=== PATIENT | female | born 1975 | race Caucasian/White ===

== ENCOUNTER 2019-06-30 13:58 | Inpatient (IN) | payer BC, OTHER ==
[2019-06-30 14:27] LABS: ABS Lymphocytes 1.5 10^3/ul (1.0-4.8); ABS Monocytes 0.3 10^3/ul (0-0.8); ABS Neutrophils 2.5 10^3/ul (1.5-7.7); Eosinophil % 0.4 %; Hematocrit 34 % (35-47); Hemoglobin 11.4 g/dL (12.0-16.0); Lymphocyte % 34.5 %; Mean Corpuscular HGB Conc 34 g/dL (31-36); Mean Corpuscular Hemoglobin 28 pg (27-31); Mean Corpuscular Volume 83 fL (80-97); Mean Platelet Volume 7.9 fL (7.4-10.4); Nucleated Red Blood Cells % 0.2; Platelet Count 190 10^3/uL (150-450); Red Blood Count 4.05 10^6 /uL (3.70-4.87); Red Cell Distribution Width 15 % (10-15); White Blood Count 4.4 10^3/uL (3.5-10.8)
--- OUTSIDE RECORDS SUMMARY | 2019-06-30 14:28 | XMS REPORT | Summary of Care ---
:1975 Author Organization [facility] Address [address] [facility] [place] [address] Care Team Providers Name Role Phone KaelJeovanyshona Ortiz Primary Care Provider Reason for Visit Reason Comments Chest Pain Pt has been been having chest discomfort for 2 weeks, tried heartburn medication and it didn't do anything, tightness feeling that is constant, but exertion makes it worse. Encounter Details Date Type Department Care Team Description 06/30/2019 Office Visit [facility] Patrick Timmons, Chest pain, Medicine PA unspecified type [address] (Primary Dx) [place] [address] [place] [address] [phone] Allergies No Known Allergiesdocumented as of this encounter (statuses as of 06/30/2019) Medications Medication Sig Dispensed Refills Start Date End Date Status cetirizine (ZYRTEC) 10 Take 10 mg by 0 Active MG Oral Tab mouth NEEDED ibuprofen (ADVIL) 200 MG Take 200 mg by 0 Active Oral Tab mouth EVERY SIX HOURS NEEDED for Pain. butalbital-acetaminophen Take 1 Tab by 60 Tab 2 01/10/2018 Active -caffeine (FIORICET) mouth EVERY 50-325-40 MG Oral TWELVE HOURS TabIndications: Chronic NEEDED nonintractable headache, (Headache). unspecified headache type documented as of this encounter (statuses as of 06/30/2019) Active Problems Problem Noted Date HTN (hypertension) Overview: Replaced inactive diagnosis Depression with anxiety Headache documented as of this encounter (statuses as of 06/30/2019) Immunizations Name Administration Dates Next Due Influenza (IM) Preservative Free 02/14/2011 documented as of this encounter Social History Tobacco Use Types Packs/Day Years Used Date Never Smoker Smokeless Tobacco: Never Used Alcohol Use Drinks/Week oz/Week Comments Yes 5 Standard drinks or equivalent 5.0 Sex Assigned at Date Recorded Not on file documented as of this encounter Last Filed Vital Signs Vital Sign Reading Time Taken Comments Blood Pressure 120/60 06/30/2019 1:06 PM EST Pulse 82 06/30/2019 1:06 PM EST Temperature 36.5 06/30/2019 1:06 PM EST C (97.7 F) Respiratory Rate - - Oxygen Saturation 98% 06/30/2019 1:06 PM EST Inhaled Oxygen Concentration - - Weight 62.1 kg (137 lb) 06/30/2019 1:06 PM EST Height 157.5 cm (5' 2") 06/30/2019 1:06 PM EST Body Mass Index 25.06 06/30/2019 1:06 PM EST documented in this encounter Patient Instructions Patient InstructionsPatrick Timmons PA - 06/30/2019 1:00 PM ESTPlease [facility] the [facility] Please follow up after the visit, I would like to know how you are doing. documented in this encounter Progress Notes Patrick Timmons PA - 06/30/2019 1:00 PM EST PATIENT: Nilson Erickson : 1975 DATE OF SERVICE: 06/30/2019 Subjective SUBJECTIVE: Nilson Erickson is a 43-y.o. female with chest pain. Onset was 2 weeks ago, with worsening course since that time. The patient admits to chest discomfort that is constant. Radiation to: none Rated as a scale of mild in intensity that is pressure in nature. Associated symptoms are exertional chest pressure/discomfort, dyspnea on exertion. Aggravating factors are: exercise. Alleviating factors are: nothing specific. Patient's cardiac risk factors are: family history of heart problems , hypertension. Patient's risk factors for deep vein thrombosis/pulmonary embolism: None. Previous cardiac testing includes: electrocardiogram (EKG). Patient Active Problem List Diagnosis Date Noted ? HTN (hypertension) Replaced inactive diagnosis ? Depression with anxiety ? Headache Past Medical History: Diagnosis Date ? Depression with anxiety ? H/O multiple allergies ? Headache(784.0) ? HTN Past Surgical History: Procedure Laterality Date ? COLONOSCOPY DIAGNOSTIC Prior to Admission medications Medication Sig gmtwnkfmtb-aizxknsrrwgau-teazgrtw (FIORICET) 50-325-40 MG Oral Tab Take 1 Tab by mouth EVERY TWELVE HOURS NEEDED (Headache). cetirizine (ZYRTEC) 10 MG Oral Tab Take 10 mg by mouth NEEDED ibuprofen (ADVIL) 200 MG Oral Tab Take 200 mg by mouth EVERY SIX HOURS NEEDED for Pain. No Known Allergies Social History Tobacco Use ? Smoking status: Never Smoker ? Smokeless tobacco: Never Used Substance Use Topics ? Alcohol use: Yes Alcohol/week: 5.0 standard drinks Types: 5 Standard drinks or equivalent per week Family History Problem Relation Age of Onset ? Hypertension Mother ? GI Mother ? Cancer Mother esophageal ? Hypertension Maternal Aunt ? Cancer Maternal Aunt ? Hypertension Maternal Uncle ? Diabetes Maternal Grandfather ? Heart Failure Paternal Grandmother ? Hypertension Maternal Aunt ? Cancer Maternal Aunt ? Hypertension Maternal Aunt ? Hypertension Maternal Uncle ? Hypertension Maternal Uncle ? Prostate Cancer Father REVIEW OF SYSTEMS: Review of Systems Constitutional: Negative for chills, diaphoresis, fever and weight loss. HENT: Negative for tinnitus. Eyes: Negative for blurred vision and double vision. Respiratory: Positive for shortness of breath. Negative for cough and wheezing. Cardiovascular: Positive for chest pain. Negative for palpitations, orthopnea and leg swelling. Gastrointestinal: Negative for diarrhea, heartburn, nausea and vomiting. Genitourinary: Negative for flank pain and hematuria. Musculoskeletal: Negative for joint pain and myalgias. Skin: Negative for itching and rash. Neurological: Negative for dizziness, speech change, seizures, loss of consciousness and headaches. Psychiatric/Behavioral: Negative for substance abuse. The patient is not nervous /anxious and does not have insomnia. Objective OBJECTIVE: BP 120/60 (BP Location: Left arm, Patient Position: Sitting) | Pulse 82 | Temp 97.7 F (36.5 C) (Tympanic) | Ht 5' 2" (1.575 m) | Wt 137 lb ( 62.1 kg) | SpO2 98% | BMI 25.06 kg/m GENERAL: alert, cooperative, no distress. NECK: nontender. LUNG: clear to auscultation bilaterally. HEART: regular rate and rhythm, S1, S2 normal, no murmur, click, rub or gallop ABDOMEN: soft, non-tender. Bowel sounds normal. No masses, no organomegaly. EXTREMITIES: extremities normal, atraumatic, no cyanosis or edema. SKIN: Warm and dry. No hyperpigmentation, vitiligo, or suspicious lesions. ELECTROCARDIOGRAM: Normal sinus rhythm with nonspecific T wave abnormality. Changes noted in comparison to last EKG. See scans. ASSESSMENT: Chest pain, suspected etiology: Possible cardiac. ICD-9-CM ICD-10-CM 1. Chest pain, unspecified type 786.50 R07.9 AMBULATORY 12 LEAD EKG (GLOBAL) Plan PLAN: 1. Transferring patient to the emergency room. Patient refuses ambulance, advised of the risks of not taking ambulance including . Report of transfer provided to charge nurse Catherine at [facility]. 2. Follow up with us as soon as you are discharge from [facility]. Author: CK Polanco 06/30/2019 13:39 documented in this encounter Plan of Treatment Name Type Priority Associated Diagnoses Order Schedule AMBULATORY 12 LEAD EKG EKG Routine Chest pain, unspecified Ordered: 2019 (GLOBAL) type Health Maintenance Due Date Last Done Comments DTaP/Tdap/Td Vaccines (1 - 1985 Tdap) DIABETES SCREENING 1992 LIPID DISORDER SCREENING 05/19/2010 05/19/2009 PAP SMEAR 02/14/2014 02/14/2011, 10/06/2010 (Previously completed) INFLUENZA VACCINE (#1) 2019 02/14/2011 Postponed from 12/29/2018 (Other) DEPRESSION SCREENING 05/22/2020 05/22/2019 MAMMOGRAM (SCREENING) 06/12/2020 06/12/2019, 06/13/2017, 09/22/2015 HEPATITIS A IMMUNIZATION Aged Out No longer eligible based SERIES on patient's age to complete this topic HPV IMMUNIZATION SERIES Aged Out No longer eligible based on patient's age to complete this topic MENINGOCOCCAL VACCINE IMM Aged Out No longer eligible based on patient's age to complete this topic PNEUMOCOCCAL 0-64 YRS Aged Out No longer eligible based on patient's age to complete this topic documented as of this encounter Goals Goal Patient Goal Associated Recent Patient-Stated? Author Type Problems Progress Blood Pressure Blood Pressure 120/60 No Ethan, < 140/90 (06/30/2019 MELY Roberts 1:06 PM EST) Note: This is an individualized treatment (blood pressure) goal for Nilson Erickson: Displayed above (on the left) is your goal for blood pressure control. Your most recent blood pressure is also shown above, on the right. You should try to achieve blood pressures that are lower than your goal listed above (on the left). Depression screen (PHQ-9) total score < 5 Depression No Patrick Timmons PA Note: This is an individualized treatment (depression) goal for Nilson Erickson: Displayed above is your goal for a depression screening (PHQ-9) score that would indicate good control of your depression. Keep a regular sleep schedule Lifestyle No Patrick Timmons PA Note: This is an individualized lifestyle goal for Nilson Erickson: Please maintain a regular sleep schedule. This may help with some symptoms of depression. Take all prescribed medications as Self-management No Alejandra Long FNP directed Note: This is an individualized self-management goal for Nilson Erickson: Please take all prescribed medications as directed. 1. Do not skip doses. If you cannot afford your medications, talk with your doctor. 2. Use a pill reminder system such as a pill box if needed. Your pharmacist can help you with this. 3. Contact your Pharmacy 5 days before your medication runs out. If you cannot take your medications for any reasons, talk with your doctor. 4. Please bring all of your medication bottles and inhalers (or a list of all your medications/inhalers) with you to every visit. Potential barriers to meeting all of your care plan goals will continue to be addressed on an ongoing basis. documented as of this encounter Results Not on filedocumented in this encounter Visit Diagnoses Diagnosis Chest pain, unspecified type documented in this encounter Guarantor Name Account Type Relation to Date of Phone Billing Patient Address Nilson Erickson Personal/Family 1975 [address]) [address] [phone] [place], [place] (Work) [id number] documented as of this encounter
--- OUTSIDE RECORDS SUMMARY | 2019-06-30 14:28 | XMS REPORT | Summary of Care ---
:1975 Author Organization [facility] Address [address] [facility] [place] [address] Care Team Providers Name Role Phone [place] Angel Primary Care Provider Reason for Visit Reason Comments Nasal Congestion x2 weeks Sore Throat Cough Encounter Details Date Type Department Care Team Description 05/22/2019 Office Visit Zuly Tavarez, Acute sinusitis, Practice [employer] recurrence not [address] specified, [place] [address] [place] [address] location (Primary Dx) [phone] Allergies No Known Allergiesdocumented as of this encounter (statuses as of 05/22/2019) Medications Medication Sig Dispensed Refills Start Date End Date Status cetirizine (ZYRTEC) Take 10 mg by 0 Active 10 MG Oral Tab mouth NEEDED ibuprofen (ADVIL) Take 200 mg 0 Active 200 MG Oral Tab by mouth EVERY SIX HOURS NEEDED for Pain. butalbital-acetamin Take 1 Tab by 60 Tab 2 01/10/2018 Active ophen-caffeine mouth EVERY (FIORICET) TWELVE HOURS 50-325-40 MG Oral NEEDED TabIndications: (Headache). Chronic nonintractable headache, unspecified headache type amoxicillin-clavula Take 1 Tab by 20 Tab 0 05/22/2019 Active teddy acid mouth TWICE 0 (AUGMENTIN) 500-125 DAILY for 10 MG Oral days. TabIndications: Acute sinusitis, recurrence not specified, unspecified location Benzonatate 200 MG Take 1 Cap by 40 Cap 1 04/20/2017 Discontinued Oral mouth THREE 0 (Therapy CapIndications: TIMES DAILY Completed) Acute bronchitis, NEEDED unspecified (cough). organism diclofenac 2 g by 1 Tube 2 01/10/2018 Discontinued (VOLTAREN) 1 % Topical route 0 (Therapy Transdermal FOUR TIMES Completed) GelIndications: DAILY. Apply Pain of finger of to affected left hand, Elbow elbow and tendonitis finger up to four times a day documented as of this encounter (statuses as of 05/22/2019) Active Problems Problem Noted Date HTN (hypertension) Overview: Replaced inactive diagnosis Depression with anxiety Headache documented as of this encounter (statuses as of 05/22/2019) Immunizations Name Administration Dates Next Due Influenza (IM) Preservative Free 02/14/2011 documented as of this encounter Social History Tobacco Use Types Packs/Day Years Used Date Never Smoker Smokeless Tobacco: Never Used Alcohol Use Drinks/Week oz/Week Comments Yes 5 Standard drinks or equivalent 5.0 Sex Assigned at Date Recorded Not on file Job Start Date Occupation Industry Not on file Not on file Not on file Travel History Travel Start Travel End No recent travel history available. documented as of this encounter Last Filed Vital Signs Vital Sign Reading Time Taken Comments Blood Pressure 126/64 05/22/2019 1:15 PM EST Pulse 89 05/22/2019 1:15 PM EST Temperature 37.3 05/22/2019 1:15 PM EST C (99.2 F) Respiratory Rate - - Oxygen Saturation 98% 05/22/2019 1:15 PM EST Inhaled Oxygen Concentration - - Weight 62.6 kg (138 lb) 05/22/2019 1:15 PM EST Height - - Body Mass Index 25.24 01/10/2018 9:20 AM EDT documented in this encounter Patient Instructions Patient InstructionsZuly Montoya FNP - 05/22/2019 1:00 PM ESTRest Fluids Steam may help loosen congestion Mucinex thins mucus Antibiotic as directed salt water gargle as needed for sore/scratchy throat Call if symptoms fail to resolve or worsen documented in this encounter Progress Notes Zuly Montoya FNP - 05/22/2019 1:00 PM EST PATIENT: Nilson Erickson : 1975 DATE OF SERVICE: 05/22/2019 CHIEF COMPLAINT: Chief Complaint Patient presents with Nasal Congestion x2 weeks Sore Throat Cough Subjective HISTORY OF PRESENT ILLNESS: Nilson Erickson is a 43-y.o. female. HPI URI sx x 2 weeks - son recently with URI and OM. Drinking tea, used Theraflu and OTC Sudafed - sx worse - Hx sinusitis Past Medical History: Diagnosis Date Depression with anxiety H/O multiple allergies Headache(784.0) HTN Family History Problem Relation Age of Onset Hypertension Mother GI Mother Cancer Mother esophageal Hypertension Maternal Aunt Cancer Maternal Aunt Hypertension Maternal Uncle Diabetes Maternal Grandfather Heart Failure Paternal Grandmother Hypertension Maternal Aunt Cancer Maternal Aunt Hypertension Maternal Aunt Hypertension Maternal Uncle Hypertension Maternal Uncle Prostate Cancer Father Current Outpatient Medications Medication Sig amoxicillin-clavulanic acid (AUGMENTIN) 500-125 MG Oral Tab Take 1 Tab by mouth TWICE DAILY for 10 days. liknwjanrb-sgspwtxupvdzo-onkeebti (FIORICET) 50-325-40 MG Oral Tab Take 1 Tab by mouth EVERY TWELVE HOURS NEEDED (Headache). cetirizine (ZYRTEC) 10 MG Oral Tab Take 10 mg by mouth NEEDED ibuprofen (ADVIL) 200 MG Oral Tab Take 200 mg by mouth EVERY SIX HOURS NEEDED for Pain. No current facility-administered medications for this visit. No Known Allergies Social History Socioeconomic History Marital status: Single Spouse name: Not on file Number of children: Not on file Years of education: Not on file Highest education level: Not on file Occupational History Not on file Social Needs Financial resource strain: Not on file Food insecurity Worry: Not on file Inability: Not on file Transportation needs Medical: Not on file Non-medical: Not on file Tobacco Use Smoking status: Never Smoker Smokeless tobacco: Never Used Substance and Sexual Activity Alcohol use: Yes Alcohol/week: 5.0 standard drinks Types: 5 Standard drinks or equivalent per week Drug use: No Sexual activity: Yes Partners: Male control/protection: Vaginal Contraceptive Ring Lifestyle Physical activity Days per week: Not on file Minutes per session: Not on file Stress: Not on file Relationships Social connections Talks on phone: Not on file Gets together: Not on file Attends lutheran service: Not on file Active member of club or organization: Not on file Attends meetings of clubs or organizations: Not on file Relationship status: Not on file Intimate partner violence Fear of current or ex partner: Not on file Emotionally abused: Not on file Physically abused: Not on file Forced sexual activity: Not on file Other Topics Concern Not on file Social History Narrative Lives in [place] with 2 children. 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 Cat in home. No tobacco exposure. Over the last 2 weeks, have you been feeling down, depressed, anxious, or hopeless?: 0 Over the past 2 weeks, have you felt little interest or pleasure in doing things ?: 0 REVIEW OF SYSTEMS: Review of Systems Constitutional: Positive for malaise/fatigue. Negative for chills and fever. HENT: Positive for congestion, ear pain, sinus pain and sore throat. Respiratory: Positive for cough and sputum production. Negative for shortness of breath and wheezing. Musculoskeletal: Positive for myalgias. Neurological: Positive for headaches. Objective PHYSICAL EXAM: VITALS: BP 126/64 | Pulse 89 | Temp 99.2 F (37.3 C) (Tympanic) | Wt 138 lb (62.6 kg) | SpO2 98% | BMI 25.24 kg/m Body mass index is 25.24 kg/ m. Physical Exam Vitals signs and nursing note reviewed. Constitutional: General: She is not in acute distress. Appearance: She is obese. HENT: Head: Normocephalic. Right Ear: Tympanic membrane is retracted. Tympanic membrane is not erythematous. Left Ear: Tympanic membrane is retracted. Tympanic membrane is not erythematous. Nose: Mucosal edema, congestion and rhinorrhea present. Right Sinus: Maxillary sinus tenderness and frontal sinus tenderness present. Left Sinus: Maxillary sinus tenderness and frontal sinus tenderness present. Mouth/Throat: Lips: [place]. Mouth: Mucous membranes are moist. Pharynx: Oropharynx is clear. Uvula midline. No oropharyngeal exudate or posterior oropharyngeal erythema. Neck: Musculoskeletal: Normal range of motion. No neck rigidity. Cardiovascular: Rate and Rhythm: Normal rate and regular rhythm. Pulmonary: Effort: Pulmonary effort is normal. Breath sounds: Normal breath sounds. Lymphadenopathy: Cervical: No cervical adenopathy. Skin: General: Skin is warm and dry. Capillary Refill: Capillary refill takes less than 2 seconds. Coloration: Skin is not ashen, cyanotic or pale. Neurological: Mental Status: She is alert and oriented to person, place, and time. Psychiatric: Mood and Affect: Mood normal. Behavior: Behavior normal. Behavior is cooperative. ASSESSMENT / IMPRESSION: ICD-9-CM ICD-10-CM 1. Acute sinusitis, recurrence not specified, unspecified location 461.9 J01.90 amoxicillin-clavulanic acid (AUGMENTIN) 500-125 MG Oral Tab Plan Rest Fluids Steam may help loosen congestion Mucinex thins mucus Antibiotic as directed salt water gargle as needed for sore/scratchy throat Call if symptoms fail to resolve or worsen Author: MELY Zapien 05/22/2019 13:34 documented in this encounter Plan of Treatment Date Type Specialty Care Team Description 06/12/2019 Ancillary Procedure Radiology Health Maintenance Due Date Last Done Comments DTaP/Tdap/Td Vaccines ( - 1985 Tdap) DIABETES SCREENING 1992 LIPID DISORDER SCREENING 05/19/2010 05/19/2009 PAP SMEAR 02/14/2014 02/14/2011, 10/06/2010 (Previously completed) MAMMOGRAM (SCREENING) 06/13/2018 06/13/2017, 09/22/2015 INFLUENZA VACCINE (#1) 2018 02/14/2011 DEPRESSION SCREENING 05/22/2020 05/22/2019 HEPATITIS A IMMUNIZATION Aged Out No longer [...] Type Problems Progress Blood Pressure Blood Pressure 126/64 No Ethan, < 140/90 (05/22/2019 MELY Roberts 1:15 PM EST) Note: This is an individualized treatment (blood pressure) goal for Nilson Erickson: Displayed above (on the left) is your goal for blood pressure control. Your most recent blood pressure is also shown above, on the right. You should try to achieve blood pressures that are lower than your goal listed above (on the left). Take all prescribed medications as Self-management No [...] filedocumented in this encounter Visit Diagnoses Diagnosis Acute sinusitis, recurrence not specified, unspecified location documented in this encounter"
[2019-06-30 14:37] LABS: INR 0.93 (0.82-1.09)
[2019-06-30 14:44] LABS: Albumin 4.6 g/dL (3.2-5.2); Albumin/Globulin Ratio 1.5 (1-3); BUN/Creatinine Ratio 15.5 (8-20); Calcium 10.1 mg/dL (8.6-10.3); EGFR African American 108.2 (>60); EGFR Non-African American 89.4 (>60); Globulin 3.1 g/dL (2-4); Potassium 3.5 mmol/L (3.5-5.0); Total Bilirubin 0.4 mg/dL (0.2-1.0); Total Protein 7.7 g/dL (6.4-8.9)
[2019-06-30 14:45] LABS: Troponin I 0.01 ng/mL (<0.03)
--- NOTE | 2019-06-30 15:33 | ED ---
HPI Chest Pain - HPI Summary HPI Summary: Patient is a 43 y/o F presenting to the ED for a chief complaint of chest pain that radiates to the upper back. About 1 month ago, she began to have upper back pain without radiating to the chest. The chest pain worsens with movement and exertion. She has shortness of breath and headache. Patient denies nausea or abdominal pain. No changes in her chest pain are reported with deep breaths. Patient has taken Nexium believing she had acid reflux without relief. Patient denies any changes in diet, exercise habits, or possibility of . She has taken Tylenol with some relief of her headache. Patient denies taking any daily medications. Patient is prescribed Fioricet for a history of headaches, but denies taking this medication. Patient had an EKG performed at [place]. While at [place], the EKG was compared to a prior EKG which showed some changes with an inverted T wave in lead III. She admits a history of chest pain with episodes of HTN. Previously, patient was taking HTN medications, including metoprolol. FMHx is significant for AAA, CHF, and blood clots. Patient admits cigarettes daily, but denies drug use. Patients medication reviewed this visit. - History of Current Complaint Chief Complaint: EDChestPainROMI Time Seen by Provider: 06/30/19 15:18 Hx Obtained From: Patient Onset/Duration: Atraumatic Timing: Intermittent Initial Severity: Mild Current Severity: Mild Pain Intensity: 2 Pain Scale Used: 0-10 Numeric Chest Pain Location: Diffuse Chest Pain Radiates: Yes Chest Pain Radiates To:: Back - Upper Aggravating Factor(s): Exertion, Movement Associated Signs and Symptoms: Positive: Chest Pain, Headaches, Shortness of Breath. Negative: Nausea, Abdominal Pain - Allergy/Home Medications Allergies/Adverse Reactions: Allergies Allergy/AdvReac Type Severity Reaction Status Date / Time No Known Allergies Allergy Verified 09/10/12 21:36 Home Medications: Home Medications Cetirizine* [ZyrTEC 10 MG TAB*] 10 mg PO DAILY 09/10/12 [History Confirmed 06/29] Cyanocobalamin (Vitamin B-12) [Vitamin B-12] 1,000 mcg PO DAILY 10/30/12 [ History Confirmed 06/30/19] Riboflavin (B2) (NF) [Vitamin B-2 (NF)] 100 mg PO DAILY 10/30/12 [History Confirmed 06/30/19] Ferrous Sulfate TAB* 325 mg PO BID 06/30/19 [History Confirmed 06/30/19] PMH/Surg Hx/FS Hx/Imm Hx Previously Healthy: Yes Cardiovascular History: Reports: Hx Hypertension Sensory History: Denies: Hx Legally Blind, Hx Deafness Opthamlomology History: Denies: Hx Legally Blind EENT History: Denies: Hx Deafness Neurological History: Reports: Hx Headaches Psychiatric History: Reports: Hx Anxiety, Hx Depression - Surgical History Surgical History: None Surgery Procedure, Year, and Place: None Infectious Disease History: No Infectious Disease History: Denies: Traveled Outside the [place] in Last 30 Days - Family History Known Family History: Positive: Cardiac Disease, Other - CHF, AAA, blood clots - Social History Occupation: Unemployed Lives: With Family Alcohol Use: None Hx Substance Use: No Substance Use Type: Reports: None Hx Tobacco Use: Yes Smoking Status (MU): Light Every Day Tobacco Smoker Type: Cigarettes Review of Systems Positive: Chest Pain Positive: Shortness Of Breath Negative: Abdominal Pain, Nausea Positive: Myalgia - Upper back that radiates from the chest Positive: Headache All Other Systems Reviewed And Are Negative: Yes Physical Exam Triage Information Reviewed: Yes Vital Signs On Initial Exam: Initial Vitals Temp Pulse Resp BP Pulse Ox 100 F 89 16 204/111 99 06/30/19 14:02 06/30/19 14:02 06/30/19 14:02 06/30/19 14:02 06/30/19 14:02 Vital Signs Reviewed: Yes Procedures - Sedation Patient Received Moderate/Deep Sedation with Procedure: No Diagnostics - Vital Signs Vital Signs Temp Pulse Resp BP Pulse Ox 06/30/19 14:50 210/122 06/30/19 14:02 100 F 89 16 204/111 99 - Laboratory Lab Results: Lab Results 06/30/19 06/30/19 06/30/19 Range/Units 14:10 14:10 14:10 WBC 4.4 (3.5-10.8) 10^3/uL RBC 4.05 (3.70-4.87) 10^6 /uL Hgb 11.4 L (12.0-16.0) g/dL Hct 34 L (35-47) % MCV 83 (80-97) fL MCH 28 (27-31) pg MCHC 34 (31-36) g/dL RDW 15 (10-15) % Plt Count 190 (150-450) 10^3/uL MPV 7.9 (7.4-10.4) fL Neut % (Auto) 57.2 % Lymph % (Auto) 34.5 % Garvin % (Auto) 7.4 % Eos % (Auto) 0.4 % Baso % (Auto) 0.5 % Absolute Neuts (auto) 2.5 (1.5-7.7) 10^3/ul Absolute Lymphs (auto) 1.5 (1.0-4.8) 10^3/ul Absolute Monos (auto) 0.3 (0-0.8) 10^3/ul Absolute Eos (auto) 0.0 (0-0.6) 10^3/ul Absolute Basos (auto) 0.0 (0-0.2) 10^3/ul Absolute Nucleated RBC 0.0 10^3/ul Nucleated RBC % 0.2 INR (Anticoag Therapy) 0.93 (0.82-1.09) Sodium 136 (135-145) mmol/L Potassium 3.5 (3.5-5.0) mmol/L Chloride 100 L (101-111) mmol/L Carbon Dioxide 26 (22-32) mmol/L Anion Gap 10 (2-11) mmol/L BUN 11 (6-24) mg/dL Creatinine 0.71 (0.51-0.95) mg/dL Est GFR ( Amer) 108.2 (>60) Est GFR (Non-Af Amer) 89.4 (>60) BUN/Creatinine Ratio 15.5 (8-20) Glucose 98 (70-100) mg/dL Calcium 10.1 (8.6-10.3) mg/dL Total Bilirubin 0.40 (0.2-1.0) mg/dL AST 19 (13-39) U/L ALT 15 (7-52) U/L Alkaline Phosphatase 57 (34-104) U/L Troponin I 0.01 (<0.03) ng/mL Total Protein 7.7 (6.4-8.9) g/dL Albumin 4.6 (3.2-5.2) g/dL Globulin 3.1 (2-4) g/dL Albumin/Globulin Ratio 1.5 (1-3) Result Diagrams: 06/30/19 14:10 06/30/19 14:10 Lab Statement: Any lab studies that have been ordered have been reviewed, and results considered in the medical decision making process. - CT Chest/Abdomen/Pelvis CTA CT Interpretation Completed By: Radiologist Summary of CT Findings: Chest/Abdomen/Pelvis CTA IMPRESSION: NO PULMONARY ARTERIAL FILLING DEFECT TO SUGGEST PULMONARY EMBOLISM. NO AORTIC INTIMAL FLAP TO SUGGEST DISSECTION. NO ACUTE CT PATHOLOGY OF THE VISUALIZED CHEST, ABDOMEN, OR PELVIS. Reviewed by Dr. Linares. - EKG 14:01 Cardiac Rate: NL - 81 BPM EKG Rhythm: Sinus Rhythm ST Segment: Normal Ectopy: None Summary of EKG Findings: EKG at 14:01 shows 81 BPM with normal sinus rhythm, no STEMI. Reviewed and interpreted by Dr. Linares. Re-Evaluation - Re-Evaluation First Eval Re-Evaluation Time: 16:06 Change: Unchanged Comment: At 16:06, manual blood pressure was improved at 175. Second Eval Re-Evaluation Time: 18:54 Change: Unchanged Comment: At 18:54, patient will be given NTG. Third Eval Re-Evaluation Time: 19:18 Change: Improved Comment: At 19:18, NTG alleviated her symptoms, but she states she does not like how it made her feel. Chest Pain Course/Dx - Provider Notifications Discussed Care Of Patient With: Sonal Whitehead - At 15:49, Dr. Patrick Timmons PA at [place] recommends the patient be placed on Lisinopril for HTN. If the patient continues to have elevated blood pressure, patient should follow up with him this week. At 19:30, Dr. Whitehead reviewed the patients case and agrees to admit the [place] [facility] [place] Time Discussed With Above Provider: 15:49 Instructed by Provider To: Admit As Inpatient Discharge ED - Sign-Out/Discharge Documenting (check all that apply): Patient Departure - Discharge, Sign-Out Patient Signing out patient TO: Dotty Fonseca - Patient is a sign out at 19: 00 on 06/30/[address] Christy Linares to Dr. Dotty Fonseca at shift change, pending imaging results, further workup, and disposition. - Discharge Plan Condition: Stable Disposition: ADMITTED TO [facility] Referrals: Alejandra Long NP [Primary Care Provider] - - Attestation Statements Document Initiated by Scribe: Yes Documenting Scribe: Jacqueline Maurer Provider For Whom Scribe is Documenting (Include Credential): Christy Linares MD Scribe Attestation: Jacqueline Nichols, scribed for Christy Linares MD on 06/30/19 at 1932. Status of Scribe Document: Ready
[2019-06-30] MEDS ORDERED: NS 0.9% 1000 ML** 1,000 ML IV ONE (15:35)
[2019-06-30] MEDS ORDERED: Famotidine IV* 10 MG/ML 2 ML (20 mg) IV SLOW PU ONE (15:35)
[2019-06-30] MEDS ORDERED: Ketorolac INJ* 30 MG/ML 1 ML VIAL IV ONE (15:36)
[2019-06-30 16:37] LABS: Influenza A Molecular Negative (Negative); Influenza B Molecular Negative (Negative)
[2019-06-30] MEDS ORDERED: Iohexol 350* (CONTRAST) 500 ML MDV IV ONE (16:43)
[2019-06-30] MEDS ORDERED: hydrALAZINE IV* 20 MG/ML VIAL IV SLOW PU ONE (17:09)
[2019-06-30] MEDS ORDERED: Nitroglycerin TAB 0.3 MG* 0.3 MG TAB SL ONE (18:57)
[2019-06-30] MEDS ORDERED: Nitroglycerin TAB 0.4 MG* 0.4 MG TAB ONE (19:03)
[2019-06-30] MEDS ORDERED: Nitro 2% OINT* (Nitroglycerin) 1 INCH/PAK PAK TOPICAL ONE (19:17)
[2019-06-30] MEDS ORDERED: Al Hydrox/Mg Hydrox/Simet LIQ* 30 ML UDC PO PRN (20:14)
[2019-06-30] MEDS ORDERED: niCARdipine 0.1MG/ML IVPREMIX* 20 MG/200 ML BAG IV SCH (21:00)
[2019-06-30 21:10] LABS: C Reactive Protein 3.71 mg/L (<8.01)
[2019-06-30] MEDS: Acetaminophen TAB* 325 MG PO PRN (21:52)
--- NOTE | 2019-06-30 21:53 | HP ---
CC: Dr. Long * HISTORY AND PHYSICAL: DATE OF ADMISSION: 06/30/19 PRIMARY CARE PHYSICIAN: Dr. Long. CHIEF COMPLAINT: Chest pain and shortness of breath. HISTORY OF PRESENT ILLNESS: This is a 43-year-old woman with remote history of hypertension, not currently being treated, who presents to the emergency department today with chest pain for 2 weeks. It initially started 2 weeks ago with some vague upper back pain that just felt like musculoskeletal pain and she did not think much of it, but gradually the pain came to her anterior chest , but she could not define a specific time when it started. It seemed to come on gradually and it has worsened over the past week. It comes and goes, it gets worse with exertion and worse with deep breath. It woke her up at night a few times. It stays in the middle of her chest and does not radiate. Over the past couple of days, it has been constant and never goes away, but does get worse again with exertion and deep breath. It also gets worse lying flat and a little bit better leaning forward. She went to her PCP's office today, who had some concern for EKG changes and sent her to the emergency department. In the emergency department, her blood pressure was found to be quite elevated and her first troponin was negative. PAST MEDICAL HISTORY: She was hypertensive in and had gestational diabetes. HOME MEDICATIONS: None. ALLERGIES: Seasonal. FAMILY HISTORY: Significant for a brother who had coronary artery disease in his 50s. Her mom and her aunt had heart failure. SOCIAL HISTORY: She is a never smoker. 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 Her healthcare proxy is her . REVIEW OF SYSTEMS: No recent illness, no cough, no palpitations. No nausea, vomiting, constipation, diarrhea. No weight loss or weight gain. No syncope. The remainder of the review of systems was negative except as per the HPI. PHYSICAL EXAMINATION GENERAL: Alert, well-appearing female, in no distress, but she does occasionally appear uncomfortable and shifts position frequently. VITAL SIGNS: Temperature 98.8, heart rate 85, respiratory rate 12, pulse ox 97 % on room air, blood pressure 162/109. Her initial blood pressure was 204/111 and peaked at 215/118. HEENT: Pupils equal, round, and react to light. Oral mucosa is moist. No pharyngeal exudates or erythema. NECK: No JVP, no adenopathy. LUNGS: Her lungs are clear bilaterally. The pain is not reproducible to palpation. CHEST: She is in a regular rate and rhythm with no murmurs. ABDOMEN: Soft, nontender, nondistended. No guarding or rebound. No CVA tenderness. EXTREMITIES: No edema, rashes, or ulcers. NEUROLOGIC: She is alert, appropriate, oriented, and her strength is 5/5 in all extremities. DIAGNOSTIC STUDIES/LAB DATA: White blood cells 4.4, hemoglobin 11.4, platelets 190. INR 0.93. Sodium 136, potassium 3.5, chloride 100, bicarb 26, BUN 11, creatinine 0.71, glucose 98. Troponin 0.01. Lipase 34. Influenza is negative. Chest, abdomen and pelvis CTA: No pulmonary arterial filling defect to suggest pulmonary embolism. No aortic intimal flap to suggest dissection and no acute CT pathology of the visualized chest, abdomen or pelvis. EKG: Normal sinus rhythm, normal axis, normal interval and isolated Q-wave in lead III and T-wave inversions in lead III, T-wave flattening in II and aVF. ASSESSMENT AND PLAN: This is a 43-year-old woman with history of hypertension, who presents to the emergency department with chest pain and shortness of breath for 2 weeks and is found to be profoundly hypertensive. 1. Chest pain: Highest on my differential for her chest pain is hypertensive emergency versus pericarditis. At this time, I am treating her for hypertensive emergency since she continues to have chest pain and continues to be profoundly hypertensive, and pushes of hydralazine as well as nitroglycerin have been unsuccessful at controlling her blood pressure in the emergency department. I am starting a nicardipine drip and admitting her to the ICU with goal MAP reduction of 5% to 15% in the next 24 hours. I will trend her troponins and monitor her on telemetry. The other possibility is that her symptoms are consistent with pericarditis and the hypertension is incidental. So, I am adding on an ESR and CRP and will follow this up and treat accordingly. She does not have the typical EKG changes or preceding viral illness; however, some of her symptoms are suggestive of pericardial syndrome. Her HEART score is 2 for a moderately suspicious story and the risk factor of a positive family history. She will be admitted for observation and depending on her course overnight, may need a stress test versus an echocardiogram in the morning. 2. DVT prophylaxis: Lovenox subcutaneous. 3. Diet: Unrestricted. [id number]/[facility] #: [id number] BING
[2019-06-30 22:22] LABS: Erythrocyte Sed Rate 19 mm/Hr (0-19)
[2019-06-30] MEDS: Morphine INJ* 2 MG/ML 1 ML SYRINGE (TWO MG - NEW SYRINGE VERSION) IV PRN (22:55)
[2019-07-01 05:10] LABS: ABS Basophils 0.1 10^3/ul (0-0.2); ABS Eosinophils 0.1 10^3/ul (0-0.6); ABS Lymphocytes 1.8 10^3/ul (1.0-4.8); ABS Monocytes 0.4 10^3/ul (0-0.8); ABS Neutrophils 2.2 10^3/ul (1.5-7.7); Eosinophil % 1.2 %; Hematocrit 30 % (35-47); Hemoglobin 10.3 g/dL (12.0-16.0); Lymphocyte % 39.5 %; Mean Corpuscular HGB Conc 35 g/dL (31-36); Mean Corpuscular Hemoglobin 29 pg (27-31); Mean Corpuscular Volume 82 fL (80-97); Mean Platelet Volume 7.9 fL (7.4-10.4); Nucleated Red Blood Cells % 0.1; Platelet Count 170 10^3/uL (150-450); Red Blood Count 3.62 10^6 /uL (3.70-4.87); Red Cell Distribution Width 15 % (10-15); White Blood Count 4.4 10^3/uL (3.5-10.8)
[2019-07-01 05:28] LABS: BUN/Creatinine Ratio 11.9 (8-20); Calcium 8.4 mg/dL (8.6-10.3); EGFR African American 115.7 (>60); EGFR Non-African American 95.6 (>60); Potassium 3.1 mmol/L (3.5-5.0)
[2019-07-01] MEDS: Enoxaparin(*) 40 MG/0.4 ML SYR SUBCUT SCH (09:46)
--- NOTE | 2019-07-01 11:32 | PN ---
Date of Service: 07/01/19 Critical Care Services: Patient seen and examined. Chest pain is reproducible with inspiration and movement. Hypertension is now controlled and she is off nicardipine drip. She is comfortable with no complaints of SOB, no dizziness, no blurred vision. In- laws are at bedside, updated on POC. Vital Signs: Temp Pulse Resp BP SpO2 FiO2 98.7 F 78 23 128/75 97 07/01/19 07:42 07/01/19 11:00 07/01/19 11:00 07/01/19 11:00 07/01/19 11:00 Physical Exam: HEENT: Normocephalic, atraumatic, non-icteric sclera, moist oral mucosa Neck: soft, supple, no JVD CV: Regular rate and rhythm, no murmurs or rubs Pulm/Chest: Good bilateral air entry, no rhonchi or rales, no wheeze Abdomen/GI: soft, nontender, nondistended, +BS noted MSK/Skin: warm, dry, intact, +2 pulses+, no edema or cyanosis Neuro: A&Ox3, no gross focal deficits Psych: Appropriate affect Fluid Balance (Past 24 Hours): Intake & Output 06/29/19 06/30/19 07/01/19 07/02/19 06:59 06:59 06:59 06:59 Intake Total 1400 Balance 1400 Weight 140 lb 7 oz Intake: IV Fluids 1000 Oral 400 Labs: Laboratory Results - last 24 hr 06/30/19 06/30/19 06/30/19 14:10 14:10 14:10 WBC 4.4 RBC 4.05 Hgb 11.4 L Hct 34 L MCV 83 MCH 28 MCHC 34 RDW 15 Plt Count 190 MPV 7.9 Neut % (Auto) 57.2 Lymph % (Auto) 34.5 Sully % (Auto) 7.4 Eos % (Auto) 0.4 Baso % (Auto) 0.5 Absolute Neuts (auto) 2.5 Absolute Lymphs (auto) 1.5 Absolute Monos (auto) 0.3 Absolute Eos (auto) 0.0 Absolute Basos (auto) 0.0 Absolute Nucleated RBC 0.0 Nucleated RBC % 0.2 ESR 19 INR (Anticoag Therapy) 0.93 Sodium 136 Potassium 3.5 Chloride 100 L Carbon Dioxide 26 Anion Gap 10 BUN 11 Creatinine 0.71 Est GFR ( Amer) 108.2 Est GFR (Non-Af Amer) 89.4 BUN/Creatinine Ratio 15.5 Glucose 98 Calcium 10.1 Total Bilirubin 0.40 AST 19 ALT 15 Alkaline Phosphatase 57 Troponin I 0.01 C-Reactive Protein 3.71 Total Protein 7.7 Albumin 4.6 Globulin 3.1 Albumin/Globulin Ratio 1.5 Lipase 34 Influenza A (Rapid) Influenza B (Rapid) 06/30/19 06/30/19 06/30/19 15:44 17:39 20:33 WBC RBC Hgb Hct MCV MCH MCHC RDW Plt Count MPV Neut % (Auto) Lymph % (Auto) Sully % (Auto) Eos % (Auto) Baso % (Auto) Absolute Neuts (auto) Absolute Lymphs (auto) Absolute Monos (auto) Absolute Eos (auto) Absolute Basos (auto) Absolute Nucleated RBC Nucleated RBC % ESR INR (Anticoag Therapy) Sodium Potassium Chloride Carbon Dioxide Anion Gap BUN Creatinine Est GFR ( Amer) Est GFR (Non-Af Amer) BUN/Creatinine Ratio Glucose Calcium Total Bilirubin AST ALT Alkaline Phosphatase Troponin I 0.01 0.00 C-Reactive Protein Total Protein Albumin Globulin Albumin/Globulin Ratio Lipase Influenza A (Rapid) Negative Influenza B (Rapid) Negative 07/01/19 07/01/19 04:50 04:50 WBC 4.4 RBC 3.62 L Hgb 10.3 L Hct 30 L MCV 82 MCH 29 MCHC 35 RDW 15 Plt Count 170 MPV 7.9 Neut % (Auto) 49.8 Lymph % (Auto) 39.5 Sully % (Auto) 8.3 Eos % (Auto) 1.2 Baso % (Auto) 1.2 Absolute Neuts (auto) 2.2 Absolute Lymphs (auto) 1.8 Absolute Monos (auto) 0.4 Absolute Eos (auto) 0.1 Absolute Basos (auto) 0.1 Absolute Nucleated RBC 0.0 Nucleated RBC % 0.1 ESR INR (Anticoag Therapy) Sodium 136 Potassium 3.1 L Chloride 103 Carbon Dioxide 24 Anion Gap 9 BUN 8 Creatinine 0.67 Est GFR ( Amer) 115.7 Est GFR (Non-Af Amer) 95.6 BUN/Creatinine Ratio 11.9 Glucose 125 H Calcium 8.4 L Total Bilirubin AST ALT Alkaline Phosphatase Troponin I C-Reactive Protein Total Protein Albumin Globulin Albumin/Globulin Ratio Lipase Influenza A (Rapid) Influenza B (Rapid) Studies: Patient Name: MARCIA BARRETT Medical Record#: [id number] Ordering Physician: Christy [facility]#: [id number] : 1975 Age: 43 Sex: F Location: EMERGENCY DEPARTMENT Exam Date: 06/30/19 1538 ADM Status: REG ER Order Information: CTA CHEST/ABD/PEL Accession Number: [id number] CPT: 25688 HISTORY: pe, CTA sob, cp, back pain, htn COMPARISONS: None relevant available at the time of dictation. TECHNIQUE: Multiple contiguous axial CT scans were obtained of the chest, abdomen, and pelvis after the administration of intravenous contrast. Coronal and sagittal multiplanar reformations are submitted for review.. FINDINGS: CHEST NECK AND THYROID: The lower neck and thyroid are unremarkable. CHEST WALL: There is no lower cervical, axillary, or supraclavicular lymphadenopathy by size criteria. HEART AND PERICARDIUM: The heart is unremarkable. AORTA AND PULMONARY VASCULATURE: There is no pulmonary arterial filling defect to suggest pulmonary blood. There is no aortic aneurysm. There is no intimal flap to suggest dissection. There is no periaortic fluid to suggest hematoma. MEDIASTINUM: There is no mediastinal lymphadenopathy by size criteria. TIM: There is no hilar lymphadenopathy by size criteria. AIRWAY AND ESOPHAGUS: The airway is unremarkable, without endobronchial filling defect. The esophagus is grossly normal. LUNG PARENCHYMA: The lungs are clear. PLEURA: No pleural abnormalities are noted. BONES AND SOFT TISSUES: No bone or soft tissue abnormalities are noted. ABDOMEN/PELVIS: LIVER: The liver is normal in shape, size, contour, and attenuation. BILE DUCTS: There is no intrahepatic or extrahepatic biliary dilatation. GALLBLADDER: The gallbladder is incompletely distended and is not well evaluated. PANCREAS: The pancreas is normal, without mass or ductal dilatation. SPLEEN: Normal in size and appearance. UPPER GI TRACT: Evaluation of the gastrointestinal tract is limited by incomplete gastric distention. The upper GI tract is unremarkable. SMALL BOWEL & MESENTERY: The small bowel is normal in contour, course, and caliber. There is no obstruction or dilatation. COLON: The colon is normal in contour, course, caliber. There is no pericolonic inflammatory change. ADRENALS: Normal bilaterally. KIDNEYS: The kidneys are normal in shape, size, contour, and axis. There is no hydronephrosis or nephrolithiasis. BLADDER: The bladder is smooth in contour. The bladder is markedly distended PELVIC ORGANS: The uterus and adnexa are grossly normal for technique. AORTA: The aorta is normal. IVC: Unremarkable LYMPH NODES: There is no lymphadenopathy by size criteria. ABDOMINAL WALL: There is a small fat-containing abdominal hernia. BONES AND SOFT TISSUES: Unremarkable OTHER: None IMPRESSION: NO PULMONARY ARTERIAL FILLING DEFECT TO SUGGEST PULMONARY EMBOLISM. NO AORTIC INTIMAL FLAP TO SUGGEST DISSECTION. NO ACUTE CT PATHOLOGY OF THE VISUALIZED CHEST, ABDOMEN, OR PELVIS Nutrition: Regular diet Impression: This is a 43 year old female with no significant PMHx that presented from her PCP office today with reports of chest pain and EKG changes, found to be in hypertensive urgency. Diagnoses: 1. Atypical Chest Wall Pain 2. Hypertensive Urgency Plan: Neuro - No active issues CV - Chest pain is very atypical and reproducible with inspiration, seems more in line with costochondritis rather than cardiac - Given questionable EKG changes in outpatient setting, will order ECHO, EKGs last night and this morning are normal with no ectopy or ischemic variants - Trops are 0.01/0.01/0.00 - Off nicardipine since last night, BP normal, would recommend amlodipine, however, BP is now 128/75, will hold off on oral agents for now - Replete potassium - CT as above with no PE or other pathology noted Pulm - No active issues ID - No active issues GI- - Regular diet Renal - No active issues Heme - No active issues Endo - No active issues Musculsk/Skin - No active issues, ambulate DVT prophylaxis: lovenox SQ Disposition: Downgrade to telemetry, medically optimized Patient clinical status: Stable Code Status: Full code Total Critical Care time is 30 minutes
[2019-07-01] MEDS ORDERED: Potassium Chlor TAB* 20 MEQ TAB.ER PO ONE (11:55)
--- NOTE | 2019-07-01 16:21 | ECHO ---
*[facility]* [place] [address] Fax #: [phone] Transthoracic Echocardiogram Patient: Nilson Erickson : 1975 Study Date: 07/01/2019 Age: 43 Gender: F HR: 78 bpm Height: 62 in /157.5 cm BSA: 1.64 m^2 Weight: 139.7 lb /63.5 kg BMI: 25.6 kg/m^2 *Insights Manager: * Rossy Tavares RDCS RN *Referring Physician: * Josefa Estrada *Reading Physician: * Jeyson Nixon MD Indications: Chest Pain, unspecified. History: Gestational diabetes. Risk factors: Hypertension. Family history is significant for coronary artery disease. Conclusions Summary: - Left ventricle: The cavity size is normal. Septal wall thickness is moderately increased at 1.4 cm. Systolic function is normal. The estimated ejection fraction is 55-60%. Wall motion is normal; there are no regional wall motion abnormalities. - Right ventricle: Systolic function is normal. - Mitral valve: There is trace regurgitation. - Aortic valve: There is no evidence of stenosis. - Pulmonary arteries: Systolic pressure cannot be accurately estimated. - Study data: No prior study is available for comparison. Study data: Transthoracic echocardiogram. Procedure: Transthoracic echocardiography was performed. Image quality was fair. Complete 2D, spectral Doppler, and color flow Doppler. Location: Bedside. Patient status: Observation. Patient room number: 447-01. No prior study is available for comparison. Rhythm: Normal sinus rhythm. Findings Left ventricle: The cavity size is normal. Septal wall thickness is moderately increased at 1.4 cm. Systolic function is normal. The estimated ejection fraction is 55-60%. Wall motion is normal; there are no regional wall motion abnormalities. There is no consistent Doppler evidence of clinically significant diastolic dysfunction. Right ventricle: The cavity size is normal. Systolic function is normal. Left atrium: The atrium is normal in size. Right atrium: The atrium is normal in size. Mitral valve: The leaflets are mildly thickened. There is no evidence of stenosis. There is trace regurgitation. Aortic valve: Not well visualized. The leaflets are mildly thickened. There is no evidence of stenosis. There is no significant regurgitation. Tricuspid valve: The valve is structurally normal. There is no evidence of stenosis. There is no significant regurgitation. Pulmonic valve: The leaflets are normal thickness. There is no evidence of stenosis. There is no significant regurgitation. Aorta: Ascending aorta: The ascending aorta is not dilated. Aortic arch: The aortic arch is not dilated. The aortic root appears normal. Pericardium: There is no significant pericardial effusion. Pulmonary arteries: The main pulmonary artery is normal-sized. Systolic pressure cannot be accurately estimated. Systemic veins: Inferior vena cava: The vessel is normal in size. There is normal respiratory change in the IVC dimension. Measurements Left ventricle Value Ref Aortic valve Value Ref BLADIMIR, LAX 3.8 cm 3.8 - 5.2 Semaj diam, ED 1.9 cm ---- ESD, LAX 2.5 cm 2.2 - 3.5 Peak v, S 1.6 m/sec ---- FS, LAX 33 % 27 - 45 VTI, S 30.4 cm ---- PW, ED 0.9 cm 0.6 - 0.9 Mean grad, S 5.0 mm Hg ---- IVS/PW, ED 1.43 Peak grad, S 10.0 mm Hg ---- E', lat semaj, TDI 13.6 cm/sec >=10.0 LVOT/AV, VTI ratio 0.72 -- -- E/e', lat semaj, 6 TDI Mitral valve Value Ref E', med semaj, TDI 8.3 cm/sec >=7.0 Peak E 0.83 m/sec -- -- E/e', med semaj, 10 Peak A 1.06 m/sec ---- TDI Decel time 218 ms ---- E', avg, TDI 11.0 cm/sec Peak grad, D 2.8 mm Hg ---- E/e', avg, TDI 8 <=14 Peak E/A ratio 0.8 -- -- LVOT Value Ref Pulmonic valve Value Ref Peak bryce, S 1.07 m/sec Peak v, S 0.96 m/sec ---- VTI, S 21.8 cm Peak grad, S 4.0 mm Hg ---- Mean grad, S 3 mm Hg Aortic root Value Ref Ventricular septum Value Ref Root diam 3.0 cm <3.9 IVS, ED (H) 1.4 cm 0.6 - 0.9 Ascending aorta Value Ref Right ventricle Value Ref AAo AP diam, S 2.9 cm ---- BLADIMIR, LAX 2.4 cm BLADIMIR minor ax, A4C 3.3 cm 1.9 - 3.5 Aortic arch Value Ref mid Arch diam 2.1 cm ---- Left atrium Value Ref Decending aorta Value Ref AP dim, ES 2.80 cm 2.70 - Micah peak bryce 1.2 m/sec ---- 3.80 ML dim, A4C 3.8 cm Inferior vena cava Value Ref SI dim, A4C 4.1 cm Diam 1.6 cm ---- Vol/bsa, ES, 1-p 21 ml/m^2 11 - 40 A4C Vol/bsa, ES, A/L 26 ml/m^2 16 - 34 Right atrium Value Ref ML dim, ES, A4C 3.1 cm 2.6 - 4.4 SI dim, ES, A4C 3.8 cm 3.4 - 5.3 Estimated RAP 3 mm Hg Legend: (L) and (H) chen values outside specified reference range. Prepared and electronically signed by Jeyson Nixon MD 07/01/2019 16:20
[2019-07-01] MEDS: Morphine INJ* 2 MG/ML 1 ML SYRINGE (TWO MG - NEW SYRINGE VERSION) IV PRN (20:26)
[2019-07-01] MEDS: Acetaminophen TAB* 325 MG PO PRN (20:26)
[2019-07-02] MEDS ORDERED: amLODIPine TAB* 5 MG PO SCH (08:01)
[2019-07-02] MEDS: Enoxaparin(*) 40 MG/0.4 ML SYR SUBCUT SCH (08:26)
[2019-07-02] MEDS: Potassium Chlor TAB* 20 MEQ TAB.ER PO SCH ×2 (09:52→13:01)
[2019-07-02 11:26] LABS: TSH (Thyroid Stimulating Horm) 2.91 mcIU/mL (0.34-5.60)
[2019-07-02 12:11] LABS: Urine Appearance Clear; Urine Bilirubin Negative (Negative); Urine Blood Negative (Negative); Urine Color Colorless; Urine Glucose Negative (Negative); Urine Ketones Negative (Negative); Urine Nitrite Negative (Negative); Urine Protein Negative (Negative); Urine Specific Gravity 1.003 (1.010-1.030); Urine Urobilinogen Negative (Negative)
[2019-07-02] MEDS: Morphine INJ* 2 MG/ML 1 ML SYRINGE (TWO MG - NEW SYRINGE VERSION) IV PRN (12:59)
[2019-07-02] MEDS ORDERED: amLODIPine TAB* 5 MG PO ONE (13:30)
[2019-07-02] MEDS: oxyCODONE TAB* 5 MG TAB PO PRN ×2 (13:45→20:39)
--- NOTE | 2019-07-02 14:33 | PN ---
Subjective Date of Service: 07/02/19 Interval History: HOSPITALIST PROGRESS NOTE Patient seen and examined at bedside. Care reviewed and d/w Shayy Her RN. She felt a little better this AM, but chest pain recurred with exertion and when her BP went up. Family History: Unchanged from Admission Social History: Unchanged from Admission Past Medical History: Unchanged from Admission Objective Active Medications: Acetaminophen (Tylenol Tab*) 650 mg PO Q4H PRN PRN Reason: PAIN - MILD Last Admin: 07/01/19 20:26 Dose: 650 mg Al Hydrox/Mg Hydrox/Simethicone (Maalox Plus*) 30 ml PO Q6H PRN PRN Reason: INDIGESTION Amlodipine Besylate (Norvasc Tab*) 5 mg PO DAILY [facility] Last Admin: 07/02/19 08:25 Dose: 5 mg Enoxaparin Sodium (Lovenox(*)) 40 mg SUBCUT Q24H [facility] Last Admin: 07/02/19 08:26 Dose: Not Given Morphine Sulfate (Morphine Inj (Syringe))*) 2 mg IV Q4H PRN PRN Reason: PAIN - MODERATE Last Admin: 07/02/19 12:59 Dose: 2 mg Oxycodone HCl (Roxycodone Tab*) 5 mg PO Q6H PRN PRN Reason: PAIN - SEVERE Last Admin: 07/02/19 13:45 Dose: 5 mg Vital Signs - 8 hr 07/02/19 07/02/19 07/02/19 07:25 08:20 11:06 Temperature 97.9 F 98.1 F 97.8 F Pulse Rate 68 79 69 Respiratory 17 16 17 Rate Blood Pressure 150/88 152/98 159/92 (mmHg) O2 Sat by Pulse 96 100 100 Oximetry 07/02/19 07/02/19 07/02/19 12:35 12:59 13:45 Temperature 98.5 F Pulse Rate 73 Respiratory 16 16 17 Rate Blood Pressure 155/98 (mmHg) O2 Sat by Pulse 100 Oximetry Oxygen Devices in Use Now: None Appearance: Pleasant lady sitting up in bed in NAD Eyes: No Scleral Icterus Ears/Nose/Mouth/Throat: Mucous Membranes Moist Neck: Trachea Midline Respiratory: Symmetrical Chest Expansion and Respiratory Effort, Clear to Auscultation Cardiovascular: RRR - Normal S1 and S2 Abdominal: NL Sounds; No Tenderness; No Distention Extremities: No Edema Neurological: Alert and Oriented x 3, NL Muscle Strength and Tone Result Diagrams: 07/01/19 04:50 07/01/19 04:50 Microbiology and Other Data: Microbiology 06/30/19 23:00 Nasal Screen MRSA (PCR) - Final Nasal Mrsa Not Detected Assess/Plan/Problems-Billing Assessment: Mrs Erickson is a 43 yo F with PMH of HTN prior to her (reportedly resolved and off meds for 6 years), gestational diabetes, who presented to ED with chest pain found to have hypertensive emergency requiring Nicardipine in drip in ICU. Transferred to telemetry floor on 06/30. - Patient Problems (1) Chest pain Comment: - ACS is ruled out with multiple negative troponins. - Her chest pain appears to have a pleuritic component, but echo showed no significant pericardial effusion, CRP and ESR are normal. Another possibility is her chest pain is secondary to HTN and possible LVOT with her thickened septum. - CTA chest/abd/pelvis was negative for dissection. - Cardiology consult requested for further evaluation. (2) Hypertensive emergency Comment: - Continue Amlodipine and monitor. - With her hypokalemia, will check renin and aldosterone looking for primary aldosteronism. (3) Anemia Comment: - H/H 10/30 not severe anemia, but may exacerbate LVOT obstruction. - Check anemia w/u. (4) DVT prophylaxis Comment: - Lovenox. (5) Full code status
[2019-07-02 15:01] LABS: % Iron Saturation 6 % (15-55); Iron 32 ug/dL (50-212); Total Iron Binding Capacity 511 mcg/dL (250-450); Transferrin 365 mg/dL (203-362)
[2019-07-02 15:24] LABS: Ferritin 6.2 ng/mL (11-307)
[2019-07-02 15:26] LABS: Folate > 20.00 ng/mL (>3.99)
--- NOTE | 2019-07-02 16:00 | CONS ---
CARDIOLOGY CONSULTATION: DATE OF CONSULT: 07/02/19 HISTORY OF PRESENT ILLNESS: Nilson is a 43-year-old woman with no past cardiac history, but a history of 6 years of hypertension that then resolved after delivery of her now 6-year-old son. At that time, the patient had symptoms of headaches with uncontrolled hypertension. The patient now presents with an approximately 10-day history of chest pain in the upper chest, radiates to the back. There is a pleuritic component to it and also positional and that it is worse lying down. It will wake her up from sleep. It is also associated with exertion. She has a sensation she needs to take a deep breath, but she denies orthopnea, PND, or any additional shortness of breath. The patient has been taking some nonsteroidals when she wakes up at night with the symptoms and it seems to help and allow her to sleep. Otherwise, she has not had any recent changes in medications. She denies any recent fevers, chills , sweats, change in bowel or bladder habits, change in weight. PAST MEDICAL HISTORY: 1. Hypertensive for 6 years. 2. Headaches. 3. Gestational diabetes. MEDICATIONS: Outpatient medications were none except the p.r.n. nonsteroidals. Current inpatient medications include: 1. Tylenol p.r.n. 2. Maalox p.r.n. 3. Norvasc 5 mg a day. 4. Lovenox 40 mg subcu q.24 hours. 5. Morphine p.r.n. moderate pain. 6. Percocet p.r.n. severe pain. 7. She received potassium repletion once. One-time medications included nicardipine. ALLERGIES: No known drug allergies. FAMILY HISTORY: Significant that she has a brother with coronary disease in his 60s. Her mother and maternal aunt had a history of congestive heart failure. 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 Never smoked. Occasional wine. REVIEW OF SYSTEMS: See history of present illness, but again no recent febrile or infectious illnesses. No change in bowel or bladder habits. No change in appetite or weight. No increase in salt or dietary changes according to the patient. All other 14-point review of systems was negative. PHYSICAL EXAM: The patient is 5 feet 2 inches, weighs 138 pounds with a BMI of 25.4. Vital Signs: On arrival to the emergency room 06/30/19, her blood pressure was 204/110 with pulse of 89 and oxygen saturation 99%, her temperature was 100 degrees Fahrenheit. [facility] 155/98, pulse of 73, oxygen saturation 100% on room air, and temperature 98.5. General Appearance: Fit and well-nourished, not overweight appearing 43-year- old woman, seated in bed, smiling, appears cheerful, and in no acute distress. Psychologically, pleasant and cooperative. Neurologically, awake, alert, and oriented to person, place, and time. Cranial nerves II through XII intact. Grossly normal sensory and motor function in the upper and lower extremities on bed exam. Skin: Warm, dry. No cyanosis or rashes. HEENT: Mucous membranes moist. Neck without increased JVP. Strong carotid pulses. Breath sounds clear with good effort. No wheezes, rales, or rhonchi. Coronary: S1, S2, regular. She has a soft systolic murmur heard at end expiration in the left upper sternal border and trace systolic murmur heard at the apex. Abdomen: Active bowel sounds. Soft, nontender without hepatosplenomegaly or masses. No abdominal bruits. Lower extremities are free of edema, with strong posterior tibial pulses. DIAGNOSTIC STUDIES/LAB DATA: A 12-lead ECG in the emergency room on 06/30/19 shows normal sinus rhythm at 66 beats per minute, QRS axis +45 with normal AV and IV conduction times and normal STs. A 12-lead ECG on 07/01/19 at 8 p.m. was not significantly changed, normal sinus rhythm at 60 beats per minute, QRS axis +45, normal AV and IV conduction times, normal ST segments, slight J-point variant. CT of the abdomen, chest, and pelvis was negative for aortic dissection, negative for pulmonary embolus. Echocardiogram from 07/01/19 showed mild septal prominence at the base with septal thickness of 1.4 cm, normal wall motion and systolic function with an ejection fraction of 55% to 60%, normal right ventricular systolic function, good valve function with trace mitral insufficiency, unable to evaluate PA pressure. Labs on arrival: Sodium 136, potassium 3.5, chloride 100, BUN 11, creatinine 0.7, glucose 98. Normal transaminases. Troponin x5 is 0.01. Labs from show sodium 136, potassium 3.1, glucose 125, calcium 8.4. INR 0.93. Urinalysis: Specific gravity 1.003 (07/02/19) and serology was negative for influenza A and B. ESR of 19 on 06/30/19 and C-reactive protein 3.71 on . White count 4.4; hematocrit 34 on admission; on 07/01/19, hematocrit 30, hemoglobin 10.3; and mean cell volume 82. IMPRESSION AND PLAN: In summary, Nilson Erickson is a 43-year-old woman with a history of hypertension in the past, resolved and she now presents with a 10- day history of pleuritic and positional chest pain and found to be severely hypertensive. The patient is improved at rest with blood pressure control with Norvasc, but continues to have exertional symptoms based on reports from the hospitalist too and confirmed by the patient. I think there is a differential. I think the most likely etiology of her discomfort with exercise is hypertension, stiff ventricle, diastolic issues, but there is a differential of dynamic left ventricular outflow tract obstruction, which might be exacerbated by anemia. I had wondered about an inflammatory process, pleural/pericardial, but the normal sed rate, C-reactive protein, and white count makes this unlikely. I agree with treating her blood pressure and I agree with being cautious and avoiding overly rapid normalization. I am going to put her on the treadmill and do a stress echo to look at blood pressure and heart rate response to exercise, EKG changes to exercise, wall motion and look for the possibility of dynamic left ventricular outflow tract obstruction as well. She is currently getting worked up for anemia. I am not sure if the drop in admission is factitious, but even if this is related to menstrual cycles, it could impact on her overall health. I agree with workup in process looking for secondary/treatable causes of hypertension, which the low potassium would suggest. Additional recommendations will be made pending her response to the above measures. [id number]/[facility] #: [id number] BING
[2019-07-02] MEDS ORDERED: Diltiazem CD CAP* 120 MG PO SCH (21:00)
[2019-07-03 05:19] LABS: Hematocrit 31 % (35-47); Hemoglobin 10.6 g/dL (12.0-16.0)
[2019-07-03 05:33] LABS: BUN/Creatinine Ratio 14.9 (8-20); Calcium 8.6 mg/dL (8.6-10.3); EGFR African American 115.7 (>60); EGFR Non-African American 95.6 (>60); Potassium 3.5 mmol/L (3.5-5.0)
[2019-07-03] MEDS ORDERED: Cyanocobalamin INJ * 1,000 MCG/ML VIAL 1 ML VIAL IM ONE (08:44)
[2019-07-03] MEDS ORDERED: amLODIPine TAB* 5 MG PO SCH (09:00)
[2019-07-03] MEDS: Diltiazem CD CAP* 120 MG PO SCH (10:04)
[2019-07-03] MEDS: Enoxaparin(*) 40 MG/0.4 ML SYR SUBCUT SCH (10:08)
[2019-07-03] MEDS: oxyCODONE TAB* 5 MG TAB PO PRN (11:08)
[2019-07-03] MEDS ORDERED: Diltiazem CD CAP* 120 MG PO ONE (13:57)
--- NOTE | 2019-07-03 15:07 | PN ---
Subjective Date of Service: 07/03/19 Interval History: HOSPITALIST PROGRESS NOTE Patient seen and examined at bedside. Care reviewed and d/w Melissa Degroot RN. She felt better this AM, but became dizzy with exertion in the afternoon. Still has mild exertional CP and dyspnea, but improved from yesterday. Endorses very heavy periods, but has not sought medical attention for it. Family History: Unchanged from Admission Social History: Unchanged from Admission Past Medical History: Unchanged from Admission Objective Active Medications: Acetaminophen (Tylenol Tab*) 650 mg PO Q4H PRN PRN Reason: PAIN - MILD Last Admin: 07/01/19 20:26 Dose: 650 mg Al Hydrox/Mg Hydrox/Simethicone (Maalox Plus*) 30 ml PO Q6H PRN PRN Reason: INDIGESTION Diltiazem HCl (Cardizem Cd Cap*) 120 mg PO DAILY [facility] Last Admin: 07/03/19 10:04 Dose: 120 mg Enoxaparin Sodium (Lovenox(*)) 40 mg SUBCUT Q24H [facility] Last Admin: 07/03/19 10:08 Dose: Not Given Oxycodone HCl (Roxycodone Tab*) 5 mg PO Q6H PRN PRN Reason: PAIN - SEVERE Last Admin: 07/03/19 11:08 Dose: 5 mg Vital Signs - 8 hr 07/03/19 07/03/19 07/03/19 07:50 08:00 11:08 Temperature 98.1 F Pulse Rate 71 Respiratory 16 16 18 Rate Blood Pressure 122/68 (mmHg) O2 Sat by Pulse 99 Oximetry 07/03/19 07/03/19 07/03/19 11:13 12:48 12:49 Temperature 97.6 F 98.8 F Pulse Rate 83 73 Respiratory 18 16 Rate Blood Pressure 147/79 167/75 (mmHg) O2 Sat by Pulse 100 100 Oximetry 07/03/19 13:37 Temperature 97.5 F Pulse Rate 77 Respiratory 18 Rate Blood Pressure 137/67 (mmHg) O2 Sat by Pulse 99 Oximetry Oxygen Devices in Use Now: None Appearance: Young lady sitting up in bed in NAD Eyes: No Scleral Icterus Ears/Nose/Mouth/Throat: Mucous Membranes Moist Neck: Trachea Midline Respiratory: Symmetrical Chest Expansion and Respiratory Effort, Clear to Auscultation Cardiovascular: NL Sounds; No Murmurs; No JVD, RRR Neurological: Alert and Oriented x 3, NL Muscle Strength and Tone Result Diagrams: 07/03/19 04:48 07/03/19 04:48 Microbiology and Other Data: Microbiology 06/30/19 23:00 Nasal Screen MRSA (PCR) - Final Nasal Mrsa Not Detected Assess/Plan/Problems-Billing Assessment: Mrs Erickson is a 43 yo F with PMH of HTN prior to her (reportedly resolved and off meds for 6 years), gestational diabetes, who presented to ED with chest pain found to have hypertensive emergency requiring Nicardipine in drip in ICU. Transferred to telemetry floor on 06/30. - Patient Problems (1) Chest pain Comment: - ACS is ruled out with multiple negative troponins. - Her chest pain appears to have a pleuritic component, but echo showed no significant pericardial effusion, CRP and ESR are normal. Another possibility is her chest pain is secondary to HTN and possible LVOT with her thickened septum. - CTA chest/abd/pelvis was negative for dissection. - Cardiology consult appreciated. - Echo stress was negative. (2) Hypertensive emergency Comment: - Continue Diltiazem and monitor. - With her hypokalemia, will check renin and aldosterone looking for primary aldosteronism. (3) Anemia Comment: - H/H 10/30 not severe anemia, but may exacerbate LVOT obstruction. - W/u compatible with ARMIN (secondary to excessive menstrual losses) as well as B12 deficiency - will replete both. (4) DVT prophylaxis Comment: - Lovenox. (5) Full code status Status and Disposition: Anticipate d/c in AM.
--- NOTE | 2019-07-03 15:49 | PN ---
Subjective Date of Service: 07/03/19 Interval History: f/u hypertension chest and back positional and reproducible SANTOYO likely multifactorial including anemia and htn wants to go home Medications Active Medications: Acetaminophen (Tylenol Tab*) 650 mg PO Q4H PRN PRN Reason: PAIN - MILD Last Admin: 07/01/19 20:26 Dose: 650 mg Al Hydrox/Mg Hydrox/Simethicone (Maalox Plus*) 30 ml PO Q6H PRN PRN Reason: INDIGESTION Diltiazem HCl (Cardizem Cd Cap*) 120 mg PO DAILY [facility] Last Admin: 07/03/19 10:04 Dose: 120 mg Enoxaparin Sodium (Lovenox(*)) 40 mg SUBCUT Q24H [facility] Last Admin: 07/03/19 10:08 Dose: Not Given Losartan Potassium (Cozaar Tab*) 25 mg PO DAILY [facility] Oxycodone HCl (Roxycodone Tab*) 5 mg PO Q6H PRN PRN Reason: PAIN - SEVERE Last Admin: 07/03/19 11:08 Dose: 5 mg Objective Vital Signs: Temp Pulse Resp BP Pulse Ox 97.5 F 83 16 132/74 100 07/03/19 15:33 07/03/19 15:33 07/03/19 15:33 07/03/19 15:33 07/03/19 15:33 Oxygen Devices in Use Now: None Appearance: nad, pleasant Ears/Nose/Mouth/Throat: Clear Oropharnyx, Mucous Membranes Moist Neck: NL Appearance and Movements; NL JVP, Trachea Midline Respiratory: Symmetrical Chest Expansion and Respiratory Effort, Clear to Auscultation Cardiovascular: NL Sounds; No Murmurs; No JVD, RRR, No Edema Abdominal: NL Sounds; No Tenderness; No Distention Extremities: No Edema Neurological: Alert and Oriented x 3 Laboratory Results: 07/03/19 04:48 07/03/19 04:48 INR (Anticoag Therapy) 0.93 (0.82-1.09) 06/30/19 14:10 Total Bilirubin 0.40 mg/dL (0.2-1.0) 06/30/19 14:10 AST 19 U/L (13-39) 06/30/19 14:10 ALT 15 U/L (7-52) 06/30/19 14:10 Alkaline Phosphatase 57 U/L (34-104) 06/30/19 14:10 Total Protein 7.7 g/dL (6.4-8.9) 06/30/19 14:10 Albumin 4.6 g/dL (3.2-5.2) 06/30/19 14:10 Globulin 3.1 g/dL (2-4) 06/30/19 14:10 Albumin/Globulin Ratio 1.5 (1-3) 06/30/19 14:10 TSH 2.91 mcIU/mL (0.34-5.60) 07/02/19 10:23 06/30/19 06/30/19 06/30/19 14:10 17:39 20:33 Troponin I 0.01 0.01 0.00 07/01/19 07/01/19 20:35 23:47 Troponin I 0.01 0.01 Assessment/Plan echo, stress echo, ct scan, labs and ekg results reviewed - add losartan 25 mg po daily (ordered), renin/neftaly already drawn will take time for results - anemia evaluation/treatment as per Primary service likely contributing to SANTOYO - can be discharged from a cardiac standpoint - will sign off, please reconsult as needed
[2019-07-03] MEDS ORDERED: Iron Sucrose* 200 MG in NS 0.9% 100 ML* 100 ML IVPB ONE (15:54)
[2019-07-03] MEDS ORDERED: traMADol TAB* 50 MG PO PRN (15:55)
[2019-07-03] MEDS: Losartan TAB* 25 MG PO SCH (16:49)
[2019-07-03] MEDS ORDERED: Lidocaine 2.5%/Prilocain 2.5%* 5 GM TUBE TOPICAL ONE (17:05)
[2019-07-03] MEDS: Acetaminophen TAB* 325 MG PO PRN (20:47)
[2019-07-04] MEDS: Enoxaparin(*) 40 MG/0.4 ML SYR SUBCUT SCH (06:57)
[2019-07-04 07:38] VITALS: BP 117/74
[2019-07-04] MEDS: Losartan TAB* 25 MG PO SCH (08:08)
[2019-07-04] MEDS: Diltiazem CD CAP* 120 MG PO SCH (08:08)
[2019-07-04] MEDS ORDERED: Cyanocobalamin TAB* 500 MCG PO SCH (09:00)
[2019-07-04 12:16] LABS: Renin 1.1 ng/mL/h
--- NOTE | 2019-07-05 02:37 | DS ---
CC: Alejandra Long NP; Dr. Rolle; Dr. Jesus Hair; DISCHARGE SUMMARY: DATE OF ADMISSION: DATE OF DISCHARGE: 07/04/19 PRIMARY CARE PROVIDER: Alejandra Long NP CONSULTING SPORTS ATTORNEY: Dr. Rolle. WILDLIFE ECOLOGIST: Dr. Jesus Hair. DISCHARGE DIAGNOSES: 1. Chest pain, pleuritic in nature. 2. Hypertensive emergency. 3. 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 4. Anemia secondary to iron and vitamin B12 deficiency. 5. Hypokalemia. SECONDARY DIAGNOSES: 1. Prior history of hypertension prior to her . 3. Gestational diabetes. MEDICATION LIST: 1. Vitamin B12 1000 mcg p.o. daily. 2. Cardizem CD 120 mg p.o. daily. 3. Ferrous sulfate 325 mg p.o. daily. 4. Losartan 25 mg p.o. daily. All the above medications are new. HOSPITAL COURSE: Mrs. Erickson is a 43-year-old lady with a past medical history as stated above that presented to the emergency room on 06/30/19 with complaints of chest pain and shortness of breath. The pain was described as retrosternal radiating to her shoulders and back, worsened with deep expiration and leaning forward as well as with exertion. In the emergency room, the patient was found to have a blood pressure of 210/ 122. She was admitted to the intensive care unit where she was started on nicardipine drip after failing hydralazine IV as well as nitroglycerin. Initially, the impression was that her chest pain could be secondary to pericarditis but her ESR is only 19. Her CRP is 3.7 and her echocardiogram showed no pericardial effusion. After 24 hours, the patient was transferred from the ICU to the telemetry floor and she continued to experience chest pressure especially with exertion. CTA of the chest, abdomen and pelvis showed no pulmonary arterial filling defect to suggest pulmonary embolism. No aortic intimal flap to suggest dissection. No acute CT pathology of the visualized chest, abdomen, or pelvis. Multiple troponins were negative and a transthoracic echocardiogram showed that the left ventricular cavity size is normal with ejection fraction of 55% to 60% but septal wall thickness is moderately increased at 1.4 cm. As there was some concern for possible left ventricle dynamic outflow obstruction, cardiology consultation was requested with Dr. Rolle. Her impression was that the patient had a history of hypertension in the past resolved and now presenting with 10-day history of pleuritic and positional chest pain, found to be severely hypertensive. She thought the most likely etiology of her discomfort with exercise is hypertension, stiff ventricle, diastolic issues but there is a differential of dynamic left ventricular outflow obstruction, which might be exacerbated by anemia. She has thought about an inflammatory process, pleural or pericardial, with normal sed rate, C-reactive protein and white count make this unlikely. She recommended a treadmill stress echo that was done and the report is that it was normal. She recommended changing the patient from amlodipine to diltiazem and the next day, she was seen in followup by Dr. Angel that recommended adding losartan for blood pressure control. The patient was noted to be anemic and this has been an issue in the past too. Her workup showed iron-deficiency anemia with iron level of 32, ferritin of 6.2 as well as vitamin B12 deficiency with B12 level of 116. The patient endorses significant metromenorrhagia and was advised to pursue workup as outpatient. She received 1 injection of vitamin B12 and of iron and I believe she would benefit with further parenteral treatment as outpatient since her ferritin is so low. As the patient had severe hypertension as well as hypokalemia, one possibility is of primary aldosteronism. Renin and aldosterone levels are pending at the time of this dictation and those results need to be followed as outpatient. I did contact Dr. Hair, who will evaluate her as outpatient. Please note if the patient is going to have 24-hour urine for renin, her losartan will have to be discontinued in preparation for the test. The patient had symptomatic improvement. Her blood pressure is much better controlled on the day of discharge and she is thought to be medically stable to be discharged home today to follow with her primary care provider as well as with Dr. Hair and Dr. Rolle. PHYSICAL EXAMINATION: Vital Signs: Temperature 98.5, heart rate is 77, respiratory rate 16, oxygen saturation 99% on room air, blood pressure is 117/ 74. General: The patient is a pleasant lady, sitting up in bed, in no acute distress. CVS: Normal S1, S2. Regular rate and rhythm, although I did not hear murmur, the portfolio mgr describes a soft systolic murmur heard at the end of expiration in the left upper external border and trace systolic murmur heard at the apex. Chest: Breath sounds bilaterally with no added sounds. Extremities: No edema. Neuro: She is alert and oriented x3. Able to move all 4 extremities. DIET: Low salt diet. ACTIVITIES: As tolerated. The patient was advised to avoid excessive physical exertion. DISPOSITION: To home. STATUS WHILE IN THE HOSPITAL: Inpatient. CONDITION AT THE TIME OF DISCHARGE: Fair. Please keep in mind that this is a summarized version of this patient's hospital stay. If you need more information, please feel free to call me at [phone] or please obtain full medical records. TIME SPENT: Approximately 45 minutes was spent on this discharge. [id number] #: [id number] BING
== END 2019-07-04 12:45 | disposition home or self-care (01) | DRG 199 ==
LOC: ED 13:58 → ICU 20:14 → MEDTELE 07-01 13:16 → OBSVTOIN 07-02 11:00 → MEDTELE 07-03 00:28
PROVIDERS: ADMIT Internal Medicine; ATTEND Internal Medicine
DX: I16.1 Hypertensive emergency (principal); R07.81 Pleurodynia; E26.09 Other primary hyperaldosteronism; D50.9 Iron deficiency anemia, unspecified; D51.9 Vitamin B12 deficiency anemia, unspecified; E87.6 Hypokalemia; I10 Essential (primary) hypertension; N92.1 Excessive and frequent menstruation with irregular cycle; J30.2 Other seasonal allergic rhinitis; Z82.49 Family history of ischemic heart disease and other diseases of the circulatory system
CPT/HCPCS: 36415; 71275; 74174; 80048; 80053; 81003; 82088; 82607; 82728; 82746; 83540; 83550; 83690; 84244; 84443; 84484; 85014; 85018; 85025; 85610; 85652; 86140; 87641; 93005; 93306; 93351; 96374; 96375; 99285; A9270-GY; G0378; J0360; J1650; J1756; J1885; J2270; J3420; Q9967